=== PATIENT | female | born 1985 | race Caucasian/White ===

== ENCOUNTER 2017-07-29 10:13 | Inpatient (IN) | payer OTHER ==
[~2017-07-29] VITALS: Ht 172.7 cm; Wt 68.0 kg
[2017-08-12] MEDS ORDERED: PRENATAL TABLE1 EAC1 PO (08:43)
[2017-08-12] MEDS ORDERED: IRON PO (08:44)
[2017-08-12] MEDS ORDERED: SYNTHROID125 MCG PO (08:45)
== END 2017-08-14 12:33 | disposition home or self-care (01) | DRG 775 ==
LOC: LDR 08-12 08:01 → OB/GYN 08-12 08:01 → LDR 08-12 09:35 → OB/GYN 08-12 17:41
PROC: 0KQM0ZZ Repair Perineum Muscle, Open Approach (ICD-10-PCS; principal; 2017-08-12)
PROC: 10E0XZZ Delivery of Products of Conception, External Approach (ICD-10-PCS; 2017-08-12)
PROC: 0W8NXZZ Division of Female Perineum, External Approach (ICD-10-PCS; 2017-08-12)
PROC: 4A1HXCZ Monitoring of Products of Conception, Cardiac Rate, External Approach (ICD-10-PCS; 2017-08-12)
PROC: 3E033VJ Introduction of Other Hormone into Peripheral Vein, Percutaneous Approach (ICD-10-PCS; 2017-08-12)
PROC: 4A033R1 Measurement of Arterial Saturation, Peripheral, Percutaneous Approach (ICD-10-PCS; 2017-08-12)
DX: O70.1 Second degree perineal laceration during delivery (principal); Z37.0 Single live birth; O99.013 Anemia complicating pregnancy, third trimester; Z3A.39 39 weeks gestation of pregnancy

== ENCOUNTER 2017-07-29 10:51 | Outpatient (CLI) | payer OTHER | END 2017-07-29 11:35 | disposition home or self-care (01) | LOC: NST 10:51 | DX: Z34.03 Encounter for supervision of normal first pregnancy, third trimester (principal) ==